=== PATIENT | female | born 1980 | race Caucasian/White ===

== ENCOUNTER 2018-04-03 12:48 | Inpatient (IN) | payer BC ==
[2018-04-03 13:38] VITALS: BMI 27.1
[2018-04-03] MEDS ORDERED: CITRIC ACID/SODIUM CITRATE 30 ML UNIT-DOSE CUP PO ONE (14:04)
[2018-04-03] MEDS ORDERED: ELECTROLYTE-148 SOLN 1,000 ML IV SCH (14:15)
--- NOTE | 2018-04-03 14:16 | HP ---
Past Medical History - Primary Care Physician PCP:: Mikel Brunner - Admission Chief Complaint: 37yo P0 with at EGA 37w 1d admitted for primary C/S due to prior uterine surgery/myomectomy. History of Present Illness: AMA Transferred PNC at 14wk (Dr. Bullock), PN labs=wnl/O positive CHAKA is 04/23/2018 by LMP and 9wk sono Myomectomy 2013 - C/S advised by MFM, per ACOG criteria at 37-39wk GDM- diet Vag GBS negative. History Source: Patient, Medical Record Limitations to Obtaining History: No Limitations - Past Medical History STORE MGR: No: Alzheimer's, CVA, Dementia, Migraine, Multiple Sclerosis, Peripheral Neuropathy, Parkinson's, Seizure, Syncope, TIA, Vertigo, Other Cardiovascular: No: AFIB, Aneurysm, Aortic Insufficiency, Aortic Stenosis, CAD, CHF, Deep Vein Thrombosis, HTN, Hyperlipdemia, [place], Mitral Insufficiency, Mitral Stenosis, Murmur, Pulmonary Hypertension, Other Pulmonary: No: Asthma, Bronchitis, Cancer, COPD, O2 Dependent, Pneumonia, Previously Intubated, Pulmonary Embolus, Pulmonary Fibrosis, Sleep Apnea, Other Gastrointestinal: No: Ascites, Cancer, Constipation, Crohn's Disease, Diverticulitis, Diverticulosis, Esophageal Varices, Gastritis, GERD, GI Bleed, Hemorrhoids, Hiatal Hernia, Inflamatory Bowel Disease, Irritable Bowel Disease, Pancreatitis, Peptic Ulcer Disease, Ulcerative Colitis, Other Hepatobiliary: No: Cirrhosis, Cholelithiasis, Cholecystitis, Choledocholithiasis , Hepatitis A, Hepatitis B, Hepatitis C, Other Renal/: No: Renal Failure, Renal Inusuff, BPH, Cancer, Hematuria, Hemodialysis , Neurogenic Bladder, Renal Calculi, UTI, Other Reproductive: Yes: Endometriosis ...: 1 ...Para: 0 ... Weeks Gestation by Dates: 37.1 ...EDC by Sono: 04/23/18 Heme/Onc: No: Anemia, B12 Deficiency, Bleeding Disorder, Cancer, Current Chemotherapy, Current Radiation Therapy, Hemochromatosis, Hypercoaguable State, Myeloproliferative Synd, Sickle Cell Disease, Sickle Cell Trait, Thrombocytopenia, Other Infectious Disease: No: AIDS, C-Diff, Herpes Zoster, HIV, MRSA, STD's, Tuberculosis, VREF, Other Psych: No: Addictions, Anxiety, Bipolar, Depression, Panic, Psychosis, Schizophrenia, Other Musculoskeletal: No: Bursitis, Chronic low back pain, Hemiparesis, Hemiplegia, Osteoarthritis, Paraplegia, Other Rheumatology: No: Fibromyalgia, Gout, Lupus, Rheumatoid Arthritis, Sarcoidosis, Vasculitis, Other ENT: No: Allergic Rhinitis, Sinusitis, Other Endocrine: No: [place]'s Disease, [place]'s Disease, Diabetes Insipidus, Diabetes Mellitus, Hyperparathyroidism, Hyperthyroidism, Hypothyroidism, Osteopenia, SIADH, Other Dermatology: No: Basal Cell, Cellulitis, Eczema, Melanoma, Psoriasis, Squamous Cell, Other Additional Medical History: FHx cardiac dz. Pt had cardiac evaluation and reports that it was normal at PCP's office - Past Surgical History Past Surgical History: Yes: Tonsillectomy Hx Myomectomy: Yes (Laparotomy Mymomectomy 08/2013) Hx Transabdominal Cerclage: No - Smoking History Smoking history: Never smoked Have you smoked in the past 12 months: No Aproximately how many cigarettes per day: 10 - Alcohol/Substance Use Hx Alcohol Use: No History of Substance Use: reports: None - Social History Usual Living Arrangement: Yes: With Spouse ADL: Independent History of Recent Travel: No Home Medications - Allergies Allergies/Adverse Reactions: Allergies Allergy/AdvReac Type Severity Reaction Status Date / Time amoxicillin [Amoxicillin] Allergy Hives Verified 08/21/13 06:48 milk Allergy HEADACHE Verified 08/21/13 06:48 sulfamethoxazole Allergy unknown Verified 08/21/13 06:48 [From Bactrim] trimethoprim [From Bactrim] Allergy Verified 08/21/13 06:48 shrimp Allergy HEADACHE Uncoded 08/21/13 06:48 - Home Medications Home Medications: Ambulatory Orders RX: Minocycline HCl [Solodyn] 55 mg PO DAILY 08/18/13 RX: SUMAtriptan SUCCINATE [Imitrex] 100 mg PO PRN PRN 08/21/13 RX: Oxycodone HCl/Acetaminophen [Percocet 5-325 mg Tablet] 1 combo PO Q4H PRN # 0 tablet 08/23/13 Ibuprofen [Motrin -] 800 mg PO TID PRN 03/02/16 RX: Alprazolam 0.5 mg PO TID PRN #12 tablet MDD 2 tabs 03/02/16 Family Disease History - Family Disease History Family Disease History: Heart Disease: Brother (, HTN, [place] at 36, aortic tear) Review of Systems - Review of Systems Constitutional: reports: No Symptoms Eyes: reports: No Symptoms HENT: reports: No Symptoms Neck: reports: No Symptoms Cardiovascular: reports: No Symptoms Respiratory: reports: No Symptoms Gastrointestinal: reports: No Symptoms Genitourinary: reports: No Symptoms Breasts: reports: No Symptoms Reported Musculoskeletal: reports: No Symptoms Integumentary: reports: No Symptoms Neurological: reports: No Symptoms Endocrine: reports: No Symptoms Hematology/Lymphatic: reports: No Symptoms Psychiatric: reports: No Symptoms Pain Intensity: 0 Physical Exam - Maternity Vital Signs: Vital Signs Temperature 98.5 F 04/03/18 13:00 Pulse Rate 95 H 04/03/18 13:00 Respiratory Rate 18 04/03/18 13:00 Blood Pressure 114/60 04/03/18 13:00 O2 Sat by Pulse Oximetry (%) Constitutional: Yes: Well Nourished, No Distress, Calm Eyes: Yes: WNL, Conjunctiva Clear, EOM Intact HENT: Yes: WNL, Atraumatic, Normocephalic Neck: Yes: WNL, Supple, Trachea Midline Cardiovascular: Yes: WNL, Regular Rate and Rhythm Breast(s): Yes: WNL - Abdominal Exam/OB Fundal Height: 37 Number of Fetuses: Single Presentation: Vertex Contractions: No Monitor Mode: External Heart Rate (range): 140 Heart Rate Location: Midline Category: I Accelerations: Uniform Decelerations: None - Vaginal Exam/OB Vaginal Bleediing: No Speculum Exam: No Amniotic Membrane Status: Intact - Physical Exam Musculoskeletal: Yes: WNL Extremities: Yes: WNL Edema: No Integumentary: Yes: WNL Deep Tendon Reflex Grade: Normal +2 ...Motor Strength: WNL Psychiatric: Yes: WNL, Alert, Oriented Hemorrhage Risk Assessment - Risk Factors Medium Risk Factors: Yes: Prior , uterine surgery,or multiple laparotomies High Risk Factors: Yes: None Risk Score: 1 Risk Level: Medium Risk Imaging - Results Ultrasound: Report Reviewed Assessment/Plan 37yo P0 with at EGA 37w 1d admitted for primary C/S due to prior uterine surgery/myomectomy. The decision was made to proceed with delivery by C/ S. We discussed the risks and benefits of C/S at length, including but not limited to scarring, pain, bleeding, infection, injury to underlying organs and structures, need for additional surgery to repair/treat any problems or complications, complications/injuries, etc. The pt verbalized her understanding and requested to proceed with surgery. The pt is aware that all surgeries have risks and no guarantees can be provided.
[2018-04-03] MEDS ORDERED: morphine SULFATE/Preservative Free 0.5 MG/ML (1cc Syringe) ONE (16:36)
[2018-04-03] MEDS ORDERED: ONDANSETRON 4 MG/2 ML VIAL IVPUSH PRN (16:50)
[2018-04-03] MEDS: OXYTOCIN 20 UNITS in 0.9% NS 20 UNIT/1,000 ML INFUS.BAG IV SCH (17:10)
[2018-04-03] MEDS ORDERED: OXYTOCIN 20 UNITS in 0.9% NS 20 UNIT/1,000 ML INFUS.BAG IV ONE (17:35)
[2018-04-03] MEDS ORDERED: OXYTOCIN 10 UNITS/ML VIAL ONE ×2 (17:36)
[2018-04-03] MEDS ORDERED: CLINDAMYCIN PHOSPHATE 600 MG/4 ML VIAL ONE (17:36)
[2018-04-03] MEDS ORDERED: SENNOSIDES/DOCUSATE COMBO (SENNA PLUS) TABLET (UD) PO PRN (17:44)
[2018-04-03] MEDS ORDERED: BENZOCAINE 20% 57 GM BOTTLE TP PRN (17:44)
[2018-04-03] MEDS ORDERED: IBUPROFEN 600 MG TABLET (FP) PO PRN (17:44)
[2018-04-03] MEDS ORDERED: METHYLERGONOVINE MALEATE 0.2 MG/1 ML AMP IM PRN (17:44)
[2018-04-03] MEDS ORDERED: WITCH HAZEL 50% (TUCKS) 40 PAD/JAR PAD TP PRN (17:44)
[2018-04-03] MEDS ORDERED: oxyCODONE HCL 5 MG TABLET PO PRN (17:44)
--- NOTE | 2018-04-03 18:26 | OP ---
Operative Note - Note: Operative Date: 04/03/18 Pre-Operative Diagnosis: at EGA 37w1d. AMA. Prior myomectomy Operation: Primary LT C/S Findings: Live baby boy in vtx presentation, no meconium, true knot on umbilical cord, 9/9. Normal uterus/tubes/ovaries. Post-Operative Diagnosis: Same as Pre-op Surgeon: Mikel Brunner Block Sorter: Yessy Lyman Anesthesiologist/INSPECTOR [employer]CTS: Roney Rubalcava Anesthesia: Spinal Specimens Removed: Placenta Estimated Blood Loss (mls): 700 Drains & Tubes with Location: Kumar Cath Drains, Volume Out (mls): 100 Blood Volume Replaced (mls): 0 Fluid Volume Replaced (mls): 1,800 Operative Report Dictated: Yes
[2018-04-03 18:44] LABS: VENOUS PH 7.32 (7.32-7.42); VENOUS PO2 22.5 mmHg (28-48)
[2018-04-03 18:45] LABS: ARTERIAL BLOOD GAS BASE EXCESS -2.6 meq/l (-2-2); ARTERIAL BLOOD GAS PCO2 51.8 mmHg (35-45); ARTERIAL BLOOD GAS pH 7.29 (7.35-7.45)
[2018-04-03 18:46] LABS: ARTERIAL BLD GAS O2 SATURATION 25.7 % (90-98.9); ARTERIAL BLOOD GAS PO2 18.6 mmHg (80-100)
[2018-04-03] MEDS ORDERED: TUBERCULIN PPD 5 TU/0.1ML SYRINGE (IN PATIENT USE ONLY) ID ONE (19:15)
[2018-04-03] MEDS: IBUPROFEN 800 MG/8 ML IJ IVPB PRN (22:09)
[2018-04-04] MEDS: IBUPROFEN 800 MG/8 ML IJ IVPB PRN ×2 (06:16→12:27)
[2018-04-04] MEDS: OXYTOCIN 20 UNITS in 0.9% NS 20 UNIT/1,000 ML INFUS.BAG IV SCH (06:17)
[2018-04-04 07:12] LABS: BASO % 0.2 % (0-2.0); EOS % 0.2 % (0-4.5); HEMATOCRIT 32.4 % (32.4-45.2); HEMOGLOBIN 11.2 GM/dL (10.7-15.3); LYMPH % 10.6 % (8-40); MCH 30.3 pg (25.7-33.7); MCHC 34.5 g/dl (32.0-36.0); MEAN PLT VOLUME 8.7 fl (7.5-11.1); PLATELET COUNT 206 K/MM3 (134-434); RBC 3.69 M/mm3 (3.60-5.2); RDW 14.3 % (11.6-15.6); WHITE BLOOD COUNT 14.4 K/mm3 (4.0-10.0)
--- NOTE | 2018-04-04 08:01 | PN ---
Post Progress Note - Subjective Subjective: Patient without acute complaints. Tolerating clears, without nausea or vomiting No voiding, de la torre in place draining clear fluid No ambulation , + flatus. Denies fevers or chills. Pain well controlled. Post Day: 1 Type of Delivery: Primary C/S Vital Signs: Vital Signs Temperature 98.3 F 04/04/18 06:00 Pulse Rate 74 04/04/18 06:00 Respiratory Rate 20 04/04/18 06:10 Blood Pressure 111/65 04/04/18 06:00 O2 Sat by Pulse Oximetry (%) 100 04/03/18 18:50 Breast Exam: Yes: Engorged Uterus: Yes: Fundus Firm Incision: Yes: Dressing dry and intact Abdomen/GI: Yes: Abdomen soft, Passing flatus. No: Abdominal Distention, Tender Lochia: Yes: Rubra Lochia, amount: Moderate Extremities: Yes: Calves non-tender, Edema (trace) Activity: Ambulating - Labs Labs: CBC WBC 14.4 K/mm3 (4.0-10.0) H 04/04/18 06:00 RBC 3.69 M/mm3 (3.60-5.2) 04/04/18 06:00 Hgb 11.2 GM/dL (10.7-15.3) 04/04/18 06:00 Hct 32.4 % (32.4-45.2) 04/04/18 06:00 MCV 88.0 fl (80-96) 04/04/18 06:00 MCH 30.3 pg (25.7-33.7) 04/04/18 06:00 MCHC 34.5 g/dl (32.0-36.0) 04/04/18 06:00 RDW 14.3 % (11.6-15.6) 04/04/18 06:00 Plt Count 206 K/MM3 (134-434) 04/04/18 06:00 MPV 8.7 fl (7.5-11.1) 04/04/18 06:00 Absolute Neuts (auto) 11.9 K/mm3 (1.5-8.0) H 04/04/18 06:00 Neutrophils % 83.0 % (42.8-82.8) H 04/04/18 06:00 Lymphocytes % 10.6 % (8-40) D 04/04/18 06:00 Monocytes % 6.0 % (3.8-10.2) 04/04/18 06:00 Eosinophils % 0.2 % (0-4.5) 04/04/18 06:00 Basophils % 0.2 % (0-2.0) 04/04/18 06:00 Nucleated RBC % 0 % (0-0) 04/04/18 06:00 Assessment/Plan 37 yo POD # 1 s/p primary CD, afebrile, vital signs stable, doing well 1. Continue routine postoperative care. 2. Follow up AM CBC 3. Rh positive status, no rhogam indicated. 4. Encourage ambulation and incentive spirometer use 5. Continue oral pain medication 6. Anticipate discharge home postoperative day #3 or #4
--- NOTE | 2018-04-04 09:25 | PN ---
Progress Note (short form) - Note Progress Note: ANESTHESIOLOGY POST-OP CHECK 37F s/p under spinal anesthesia, POD #1. No acute complaints, no acute events. Pain 6/10 and tolerable. Denies N/V, backache, headache. Vital Signs Temperature 98.3 F 04/04/18 06:00 Pulse Rate 74 04/04/18 06:00 Respiratory Rate 20 04/04/18 06:10 Blood Pressure 111/65 04/04/18 06:00 O2 Sat by Pulse Oximetry (%) 100 04/03/18 18:50 Active Medications Acetaminophen (Tylenol -) 650 mg PO Q4H PRN PRN Reason: FEVER Benzocaine (Americaine 20% [place] -) 1 spray TP DAILY PRN PRN Reason: Pain - Topical Bisacodyl (Dulcolax Suppository -) 10 mg RC DAILY PRN PRN Reason: CONSTIPATION Diphenhydramine HCl (Benadryl Injection -) 25 mg IVPUSH Q4H PRN PRN Reason: Pruritis Enoxaparin Sodium (Lovenox -) 40 mg SQ DAILY [facility] Parenteral Electrolytes (Plasma-Lyte 148 -) 1,000 mls @ 125 mls/hr IV ASDIR [facility] Last Admin: 04/03/18 13:15 Dose: 125 mls/hr Oxytocin/Sodium Chloride (Normal Saline+20 Units Oxytocin -) 20 unit in 1,000 mls @ 125 mls/hr IV ASDIR [facility] Last Admin: 04/04/18 06:17 Dose: 125 mls/hr Ibuprofen (Motrin -) 600 mg PO Q4H PRN PRN Reason: PAIN LEVEL 1-3 Ibuprofen (Caldolor Injection -) 800 mg IVPB Q8H PRN PRN Reason: PAIN 1-3 IF PO NOT EFFECTIVE Last Admin: 04/04/18 06:16 Dose: 800 mg Methylergonovine Maleate (Methergine Injection -) 0.2 mg IM Q4H PRN PRN Reason: Excessive Bleeding (L&D) Last Admin: 04/04/18 06:16 Dose: 0.2 mg Ondansetron HCl (Zofran Injection) 4 mg IVPUSH Q4H PRN PRN Reason: NAUSEA Oxycodone HCl (Roxicodone -) 5 mg PO Q4H PRN PRN Reason: PAIN LEVEL 4 - 6 Oxycodone HCl (Roxicodone -) 10 mg PO Q4H PRN PRN Reason: PAIN LEVEL 7 - 10 Senna/Docusate Sodium (Pericolace -) 2 tablet PO HS PRN PRN Reason: CONSTIPATION Simethicone (Mylicon -) 80 mg PO Q4H PRN PRN Reason: GAS [place]/Glycerin (Tucks Pads -) 1 pad TP DAILY PRN PRN Reason: Pain - Topical Gen: Awake, alert, NAD Ext: no motor or sensory deficits of b/l lower ext No apparent anesthesia complications. -Pain controlled -encourage ambulation -Continue management as per primary team.
--- NOTE | 2018-04-04 09:33 | OP ---
DATE OF OPERATION: 04/03/2018 PREOPERATIVE DIAGNOSES: at estimated gestational age of 37 weeks and 1 day, previous myomectomy, advanced maternal age. POSTOPERATIVE DIAGNOSES: at estimated gestational age of 37 weeks and 1 day, previous myomectomy, advanced maternal age, delivered. PROCEDURE: Primary low transverse section via Pfannenstiel skin incision. SURGEON: Mikel Brunner MD COMPUTER LANGUAGE CODER: Yessy Lyman MD ANESTHESIOLOGIST: Roney Rubalcava MD ANESTHESIA: Spinal. COMPLICATIONS: None. INTRAVENOUS FLUIDS: 1800 mL ESTIMATED BLOOD LOSS: 700 mL URINE OUTPUT: Clear urine 100 mL at the end of the procedure. PATHOLOGY: Placenta. FINDINGS: Live baby boy in vertex presentation. No meconium in amniotic fluids. There was a true knot noted on the umbilical cord. Apgars were 9 and 9. Normal uterus, fallopian tubes, and ovaries bilaterally. DESCRIPTION OF PROCEDURE: The patient was met preoperatively. Risks, benefits, and alternatives of surgery were discussed in details. All questions were answered. The patient was then brought to the OR with the IV running. She was placed on the surgical table in the sitting position. The spinal anesthesia was achieved without difficulty. The patient was then placed in a supine position with leftward tilt. She was prepped and draped in the usual sterile fashion. A Kumar catheter was inserted and left to drain to gravity. The surgeons then proceeded with the operation. A timeout was conducted in the usual fashion. A Pfannenstiel skin incision was made with the knife approximately 2 cm above the pubic symphysis and slightly above the previous myomectomy scar. The incision was carried down to the level of fascia. The fascia was incised in the midline. The incision was extended bilaterally using Abdul scissors. The fascia was then dissected away from the rectus muscles superiorly and inferiorly. The rectus muscles were in the midline using blunt dissection. The peritoneum was identified, tented upwards, and incised. The peritoneal incision was extended superiorly and inferiorly. The bladder peritoneum was then incised above the lower uterine segment. The bladder was dissected away from the lower uterine segment and reflected downwards. The uterus was incised transversely in the lower uterine segment. The incision was extended bilaterally using bandage scissors. The amniotic bag was then ruptured, and clear amniotic fluid was noted. The baby was delivered from vertex presentation and without complications. The baby was crying spontaneously. The umbilical cord was clamped and cut. The baby was handed to the awaiting cartridge loader. A true knot was noted on the umbilical cord. A segment of the umbilical cord was secured for umbilical cord blood gases. The placenta was then delivered without complications. The placenta was sent to Pathology. The uterus was cleared of all clots and debris. The uterus was noted to be well contracted. The uterine incision was repaired using a 0 Biosyn suture with a running locking stitch. Good hemostasis was noted. The uterine incision was then imbricated using a secondary layer of closure with a 0 Biosyn suture. Once again, good hemostasis was noted. The bladder peritoneum was then approximated with good hemostasis and approximation. The operative site was irrigated using copious amounts of normal saline. Once the saline was aspirated, good hemostasis was confirmed. The abdominal peritoneum was then approximated using a 2-0 chromic suture. The rectus muscles were also approximated in the midline using several interrupted 2-0 chromic sutures. The fascia was closed using a 0 Vicryl suture with a running stitch. Good hemostasis was noted, and approximation was confirmed. The subcutaneous adipose tissues and Rosanna fascia were approximated using several interrupted 2-0 chromic sutures to eliminate space. The skin was then closed using a 3-0 Vicryl suture with a subcutaneous stitch. The patient tolerated the procedure well. Sponge, lap, and needle counts were correct. The patient was transferred to recovery room in stable condition and awake. Sonja [id number]
[2018-04-04] MEDS: ENOXAPARIN NA (PORCINE) 40 MG/0.4 ML DISP.SYRIN SQ SCH (09:45)
[2018-04-04] MEDS: IBUPROFEN 600 MG TABLET (FP) PO PRN ×2 (17:39→21:22)
[2018-04-04] MEDS: SIMETHICONE 80 MG TAB.CHEW (FP) PO PRN ×2 (17:40→21:21)
[2018-04-04] MEDS: ACETAMINOPHEN 325 MG TABLET (FP) PO PRN (17:40)
[2018-04-04] MEDS ORDERED: BISACODYL 10 MG SUPP.RECT RC PRN (17:44)
[2018-04-04] MEDS: oxyCODONE HCL 5 MG TABLET PO PRN (21:25)
[2018-04-05] MEDS: IBUPROFEN 600 MG TABLET (FP) PO PRN ×3 (08:30→20:39)
[2018-04-05] MEDS: oxyCODONE HCL 5 MG TABLET PO PRN ×2 (08:30→13:33)
[2018-04-05] MEDS: SIMETHICONE 80 MG TAB.CHEW (FP) PO PRN ×3 (08:31→20:39)
--- NOTE | 2018-04-05 09:26 | PN ---
Post Progress Note - Subjective Subjective: Patient without acute complaints. Reports tolerating oral intake without nausea or vomiting. Ambulating without dizziness. Denies fevers or chills. Pain well controlled with oral pain medication. Passing flatus. Post Day: 2 Type of Delivery: Primary C/S Vital Signs: Vital Signs Temperature 98.4 F 04/04/18 21:28 Pulse Rate 84 04/04/18 21:28 Respiratory Rate 20 04/04/18 21:28 Blood Pressure 110/50 L 04/04/18 21:28 O2 Sat by Pulse Oximetry (%) 100 04/03/18 18:50 Uterus: Yes: Fundus Firm Incision: Yes: Sutures intact. No: Redness, Oozing Abdomen/GI: Yes: Abdomen soft, Passing flatus, Tolerating PO. No: Abdominal Distention, Tender Lochia: Yes: Serosa Lochia, amount: Small Extremities: Yes: Calves non-tender. No: Edema Activity: Ambulating - Labs Labs: CBC WBC 14.4 K/mm3 (4.0-10.0) H 04/04/18 06:00 RBC 3.69 M/mm3 (3.60-5.2) 04/04/18 06:00 Hgb 11.2 GM/dL (10.7-15.3) 04/04/18 06:00 Hct 32.4 % (32.4-45.2) 04/04/18 06:00 MCV 88.0 fl (80-96) 04/04/18 06:00 MCH 30.3 pg (25.7-33.7) 04/04/18 06:00 MCHC 34.5 g/dl (32.0-36.0) 04/04/18 06:00 RDW 14.3 % (11.6-15.6) 04/04/18 06:00 Plt Count 206 K/MM3 (134-434) 04/04/18 06:00 MPV 8.7 fl (7.5-11.1) 04/04/18 06:00 Absolute Neuts (auto) 11.9 K/mm3 (1.5-8.0) H 04/04/18 06:00 Neutrophils % 83.0 % (42.8-82.8) H 04/04/18 06:00 Lymphocytes % 10.6 % (8-40) D 12/20/18 06:00 Monocytes % 6.0 % (3.8-10.2) 04/04/18 06:00 Eosinophils % 0.2 % (0-4.5) 04/04/18 06:00 Basophils % 0.2 % (0-2.0) 04/04/18 06:00 Nucleated RBC % 0 % (0-0) 04/04/18 06:00 Assessment/Plan 37 yo POD # 2 s/p primary CD, afebrile, vital signs stable, doing well 1. Continue routine postoperative care. 2. Encourage ambulation and incentive spirometer use 3. Continue oral pain medication 4. Anticipate discharge home postoperative day #4
[2018-04-05] MEDS: ENOXAPARIN NA (PORCINE) 40 MG/0.4 ML DISP.SYRIN SQ SCH (11:46)
--- NOTE | 2018-04-06 09:16 | PN ---
Post Progress Note - Subjective Subjective: No complains Post Day: 3 Type of Delivery: Primary C/S Vital Signs: Vital Signs Temperature 98.4 F 04/05/18 22:00 Pulse Rate 86 04/05/18 22:00 Respiratory Rate 18 04/05/18 22:00 Blood Pressure 121/69 04/05/18 22:00 O2 Sat by Pulse Oximetry (%) 100 04/03/18 18:50 Breast Exam: Yes: Soft Uterus: Yes: Fundus Firm Incision: Yes: Sutures intact Abdomen/GI: Yes: Abdomen soft Lochia: Yes: Rubra Lochia, amount: Small Extremities: Yes: Calves non-tender Perineum: Yes: Intact Activity: Ambulating - Labs Labs: CBC WBC 14.4 K/mm3 (4.0-10.0) H 04/04/18 06:00 RBC 3.69 M/mm3 (3.60-5.2) 04/04/18 06:00 Hgb 11.2 GM/dL (10.7-15.3) 04/04/18 06:00 Hct 32.4 % (32.4-45.2) 04/04/18 06:00 MCV 88.0 fl (80-96) 04/04/18 06:00 MCH 30.3 pg (25.7-33.7) 04/04/18 06:00 MCHC 34.5 g/dl (32.0-36.0) 04/04/18 06:00 RDW 14.3 % (11.6-15.6) 04/04/18 06:00 Plt Count 206 K/MM3 (134-434) 04/04/18 06:00 MPV 8.7 fl (7.5-11.1) 04/04/18 06:00 Absolute Neuts (auto) 11.9 K/mm3 (1.5-8.0) H 04/04/18 06:00 Neutrophils % 83.0 % (42.8-82.8) H 04/04/18 06:00 Lymphocytes % 10.6 % (8-40) D 04/04/18 06:00 Monocytes % 6.0 % (3.8-10.2) 04/04/18 06:00 Eosinophils % 0.2 % (0-4.5) 04/04/18 06:00 Basophils % 0.2 % (0-2.0) 04/04/18 06:00 Nucleated RBC % 0 % (0-0) 04/04/18 06:00 Assessment/Plan 37yo P1 POD # 3 s/p Primary c/section due to fibroid uterus VSS, Afebrile, Doing well Plan D/C PPD # 4 Baby boy for Circumcision cont. routine care
[2018-04-06 09:26] LABS: BASO % 0.2 % (0-2.0); EOS % 2.9 % (0-4.5); HEMATOCRIT 32.3 % (32.4-45.2); HEMOGLOBIN 10.3 GM/dL (10.7-15.3); LYMPH % 20.5 % (8-40); MCH 28.8 pg (25.7-33.7); MCHC 32.1 g/dl (32.0-36.0); MEAN CELL VOLUME 89.8 fl (80-96); MEAN PLT VOLUME 8.5 fl (7.5-11.1); MONO % 6.6 % (3.8-10.2); NEUT % 69.8 % (42.8-82.8); PLATELET COUNT 223 K/MM3 (134-434); RBC 3.59 M/mm3 (3.60-5.2); RDW 14.5 % (11.6-15.6); WHITE BLOOD COUNT 10.8 K/mm3 (4.0-10.0)
[2018-04-06] MEDS: IBUPROFEN 600 MG TABLET (FP) PO PRN ×4 (09:46→21:17)
[2018-04-06] MEDS: oxyCODONE HCL 5 MG TABLET PO PRN ×2 (09:47→21:50)
[2018-04-06] MEDS: ENOXAPARIN NA (PORCINE) 40 MG/0.4 ML DISP.SYRIN SQ SCH (11:30)
[2018-04-06] MEDS ORDERED: oxyCODONE HCL 5 MG TABLET PO PRN (20:37)
--- NOTE | 2018-04-06 20:47 | PN ---
Progress Note (short form) - Note Progress Note: Patient states desires circumcision for . Discussed risks including infection, bleeding, damage to tip of penis, and unsatisfactory result, resulting in surgical repair or repeat circumcision. Patient expressed understanding and consents to procedure. Reviewed infants chart, cleared for circumcision and normal genitalia per assembler brazer, Dr. Marr
--- NOTE | 2018-04-07 07:46 | PN ---
Post Progress Note - Subjective Subjective: Patient without acute complaints. Reports tolerating oral intake without nausea or vomiting. Ambulating without dizziness. Denies fevers or chills. Pain well controlled with oral pain medication. Passing flatus. Post Day: 4 Type of Delivery: Primary C/S Vital Signs: Vital Signs Temperature 98.5 F 04/06/18 22:00 Pulse Rate 73 04/06/18 22:00 Respiratory Rate 20 04/06/18 22:00 Blood Pressure 125/72 04/06/18 22:00 O2 Sat by Pulse Oximetry (%) 100 04/03/18 18:50 Breast Exam: Yes: Soft Uterus: Yes: Fundus Firm, Fundus below umbilicus Incision: Yes: Dressing dry and intact, Sutures intact. No: Redness, Oozing Abdomen/GI: Yes: Abdomen soft, Passing flatus, Tolerating PO. No: Abdominal Distention, Tender Lochia: Yes: Serosa Lochia, amount: Small Extremities: Yes: Calves non-tender. No: Edema Activity: Ambulating - Labs Labs: CBC WBC 10.8 K/mm3 (4.0-10.0) H 04/06/18 07:45 RBC 3.59 M/mm3 (3.60-5.2) L 04/06/18 07:45 Hgb 10.3 GM/dL (10.7-15.3) L 04/06/18 07:45 Hct 32.3 % (32.4-45.2) L 04/06/18 07:45 MCV 89.8 fl (80-96) 04/06/18 07:45 MCH 28.8 pg (25.7-33.7) 04/06/18 07:45 MCHC 32.1 g/dl (32.0-36.0) 04/06/18 07:45 RDW 14.5 % (11.6-15.6) 04/06/18 07:45 Plt Count 223 K/MM3 (134-434) 04/06/18 07:45 MPV 8.5 fl (7.5-11.1) 04/06/18 07:45 Absolute Neuts (auto) 7.6 K/mm3 (1.5-8.0) 04/06/18 07:45 Neutrophils % 69.8 % (42.8-82.8) 04/06/18 07:45 Lymphocytes % 20.5 % (8-40) D 04/06/18 07:45 Monocytes % 6.6 % (3.8-10.2) 04/06/18 07:45 Eosinophils % 2.9 % (0-4.5) D 04/06/18 07:45 Basophils % 0.2 % (0-2.0) 04/06/18 07:45 Nucleated RBC % 0 % (0-0) 04/06/18 07:45 Assessment/Plan 37 yo POD # 4 s/p primary CD, afebrile, vital signs stable, doing well 1. Patient stable for discharge home today. 2. Patient encouraged to contact MD for: - Severe pain not controlled by oral pain medication - Fevers or chills - Nausea or vomiting, intolerance of oral intake - Incision redness, tenderness or discharge 3. Patient to follow up in office in 1-2 weeks for incision check, 4-6 weeks for visit
--- NOTE | 2018-04-07 07:55 | DS ---
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 She fulfilled all criteria for discharge POD #4. Condition: Good - Instructions Diet, Activity, Other Instructions: Physical activity Resume your normal everyday activity as tolerated no heavy lifting or exercise until seen by your surgeon. You may walk unlimited belen of and climb stairs. You may resume driving the car when you feel safe and comfortable behind the wheel. No sexual activity as instructed. Wound care If you have a bandage, leave it on, and keep dry for 48-72 hours. After that time discard the outer bandage. If they are tapes on the skin under the out of bandage leave them in place. They will peel off in the next 7 to 10 days. Do Not Peel them off. You may shower the day after surgery. If there are tapes present on the skin, you may shower over them. Diet There are no dietary restrictions. Eat healthy, high-fiber foods. Drink 6 to 8 glasses of liquid each day. This will assist in keeping your bowels are regular. Pain management You may take Tylenol or acetaminophen or Ibuprofen (for example, Motrin, Advil etc.) from my pain prescription medication is ordered should be taken as prescribed for moderate to severe pain. Call MD for any of the following: Severe pain not relieved by medication Fever of 101 or higher Excessive bleeding or drainage on dressing Inability to urinate Referrals: Anatoliy Pina MD [Staff Physician] - Disposition: HOME - Home Medications Comprehensive Discharge Medication List: Ambulatory Orders Minocycline HCl [Solodyn] 55 mg PO DAILY 08/18/13 SUMAtriptan SUCCINATE [Imitrex] 100 mg PO PRN PRN 08/21/13 Oxycodone HCl/Acetaminophen [Percocet 5-325 mg Tablet] 1 combo PO Q4H PRN #0 tablet 08/23/13 Alprazolam 0.5 mg PO TID PRN #12 tablet MDD 2 tabs 03/02/16 Ibuprofen [Motrin -] 800 mg PO TID PRN 03/02/16
[2018-04-07] MEDS ORDERED: PSEUDOEPHEDRINE HCL 30 MG TABLET PO SCH (10:00)
[2018-04-07] MEDS: ACETAMINOPHEN 325 MG TABLET (FP) PO PRN (10:30)
[2018-04-07] MEDS: IBUPROFEN 600 MG TABLET (FP) PO PRN (10:30)
[2018-04-07] MEDS: SIMETHICONE 80 MG TAB.CHEW (FP) PO PRN (10:30)
[2018-04-07] MEDS: ENOXAPARIN NA (PORCINE) 40 MG/0.4 ML DISP.SYRIN SQ SCH (10:33)
[2018-04-07 11:57] VITALS: BP 120/71; PULSE 82; TEMP 98.3
--- NOTE | 2018-04-10 18:36 | PATH ---
Surgical Pathology Report Patient Name: IMAN MEJIA [facility]. Rec. 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 Specimen(s) Received PLACENTA Clinical History , 37.1 week Final Diagnosis PLACENTA: THIRD TRIMESTER PLACENTA. TRIVASCULAR CORD. MEMBRANES WITH NO DIAGNOSTIC ABNORMALITIES. Electronically Signed Georgie Castellon M.D. Gross Description The specimen is received fresh labeled placenta and is a 541 gram, 15.5 x 14.5 x 2.6 cm. placenta with attached membranes and umbilical cord. The attached membranes are vaughn, translucent with focal opacities and insert marginally. The umbilical cord measures 13 cm. in length and averages 1.2 cm. in diameter. The cord inserts eccentrically, 5 cm. to the nearest margin. No true knots or strictures are identified. Cut surface of the umbilical cord reveals 3 vessels. The surface is lee-blue with minimal fibrin deposition and appropriate caliber vessels. The maternal surface is red-brown and intact. Sectioning reveals red-brown, spongy parenchyma. No lesions are identified. Chief Nuclear Medicine Technologist sections are submitted in three cassettes as follows: 1- membrane rolls and umbilical cord; 2-3- full thickness sections of placenta. 04/05/201804/05/2018
== END 2018-04-07 13:00 | disposition home or self-care (01) | DRG 788 ==
LOC: JLDR 12:48 → J3W 19:46
PROVIDERS: ADMIT Obstetrics & Gynecology; ATTEND Obstetrics & Gynecology
PROC: 10D00Z1 Extraction of Products of Conception, Low, Open Approach (ICD-10-PCS; principal; 2018-04-03)
DX: O75.89 Other specified complications of labor and delivery (principal); O75.82 Onset (spontaneous) of labor after 37 completed weeks of gestation but before 39 completed weeks gestation, with delivery by (planned) cesarean section; D25.9 Leiomyoma of uterus, unspecified; Z3A.37 37 weeks gestation of pregnancy; Z37.0 Single live birth; Z98.890 Other specified postprocedural states; Z88.0 Allergy status to penicillin
CPT/HCPCS: 36415; 36600; 80048; 82803; 85025; 85610; 85730; 86593; 86850; 86900; 86901; 88307-TC; 94010